=== PATIENT | female | born 1985 | race African-American/Black ===

== ENCOUNTER 2019-01-01 08:18 | Outpatient (CLI) | payer MEDICAID ==
--- NOTE | 2019-01-01 10:27 | ULT ---
BILATERAL RENAL ULTRASOUND COMPLETE: Date: 01/01/19 HISTORY: Chronic kidney disease. FINDINGS: Right kidney measures 9.3 x 5.0 x 4.8 cm. Left kidney measures 9.5 x 5.1 x 4.5 cm. Mild left renal hydronephrosis with some dilatation of the renal pelvis primarily. 1.2 x 1.4 cm left renal cyst. Urinary bladder appears unremarkable. Post-void bladder volume is 10.4 mL. IMPRESSION: Mild dilatation of the left upper renal collecting system. Small left renal cyst. Small post-void uri nary bladder residual. POS: OFF
== END 2019-01-01 08:19 | disposition home or self-care (01) ==
LOC: BICULT 08:18
PROVIDERS: ATTEND Internal Medicine Nephrology
DX: N18.3 Chronic kidney disease, stage 3 (moderate) (principal); N28.1 Cyst of kidney, acquired; N28.89 Other specified disorders of kidney and ureter
CPT/HCPCS: 36415; 76770; 80048; 82570; 84156

== ENCOUNTER 2019-03-11 12:36 | Outpatient (CLI) | payer OTHER ==
--- NOTE | 2019-03-11 13:57 | CT ---
CT Abdomen Pelvis W WO con History: Hydronephrosis Comparison: Ultrasound January 01, 2019 Findings: Lung bases are clear. No pericardial effusion. No renal calculi. Intrauterine device is in place. There is a simple cysts interpolar left kidney measuring 1 cm and fl uid attenuation. Mild dilatation of the left renal pelvis with relatively sharp calyces. The right renal calyces are sharp. No right renal pelvic enlargement. No filling defect within the urinary bladder. No dilated loops of large or small bowel. The appendix is visualized and is normal. No free intraperitoneal gas or fluid. The spleen pancreas liver and gallbladder are all normal. Few erosions of the SI joints bilaterally. No abnormal urothelial enhancing mass. Impression: 1. Simple cyst left kidney. 2. Mild dilatation left renal pelvis without calculi or distal obstructing process. Left ureter is no rmal.
[2019-03-11] MEDS ORDERED: ISOVUE-370 76%-LOCM 1 ML ONE (16:27)
== END 2019-03-11 12:37 | disposition home or self-care (01) ==
LOC: BICCT 12:36
PROVIDERS: ATTEND Urology
DX: N39.41 Urge incontinence (principal); N13.39 Other hydronephrosis; N28.1 Cyst of kidney, acquired; N28.89 Other specified disorders of kidney and ureter
CPT/HCPCS: 36415; 74178; 80048; 83036; Q9966

== ENCOUNTER 2020-08-22 15:24 | Observation (INO) | payer OTHER ==
[2020-08-22 16:04] LABS: #Eosinphils 0.1 thou/uL (0.0-0.7); #Lymphocytes 2.7 thou/uL (1.20-3.40); #Monocytes 0.4 thou/uL (0.11-0.59); #Neutrophils 4.2 thou/uL (1.40-6.50); %Basophils 0.6 % (0.0-1.0); %Eosinophils 1.9 % (0.0-10.0); %Lymphocytes 35.8 % (21.0-51.0); %Monocytes 5.6 % (0.0-10.0); %Neutrophils 56.1 % (42.0-75.0); Hemoglobin 13.7 g/dL (12.0-16.0); Mean Corpuscular HGB CONC 32.3 g/dL (32.0-36.0); Mean Corpuscular Volume 86.8 fL (78.0-98.0); Mean Platelet Volume 8.4 fL (7.4-10.4); Platelet Count 254 thou/uL (130-400); RBC Distribution Width 11.9 % (11.5-14.5); Red Blood Cell (RBC) Count 4.88 mill/uL (4.20-5.40); White Blood Cell (WBC) Count 7.5 thou/uL (4.8-10.8)
--- NOTE | 2020-08-22 16:14 | RAD ---
Chest one view HISTORY: Chest pain. COMPARISON: 12/21/2018. FINDINGS: Cardiac silhouette is magnified by projection. Shallow inspiration accentuates pulmonary ma rkings. Subtle ill-defined streaky parenchymal opacity projects over the left posterior lung base. No evidence of pneumothorax. IMPRESSION : Subtle left basilar streaky infiltrate/opacity. Correlate for left lower lobe pneumonitis
[2020-08-22] MEDS ORDERED: Aspirin Chewable 81 MG TAB ONE (16:16)
[2020-08-22] MEDS ORDERED: Nitroglycerin 2% Ointment 1 INCH/1 GM Packet ONE (16:16)
[2020-08-22 16:22] LABS: BHCG - Serum Negative (NEGATIVE); Pregs Control Background? CLEAR/WHITE (CLR/WHITE); Pregs Control Bar Appear? YES (CONTROL BAR)
[2020-08-22 16:25] LABS: ALT (SGPT) 17 U/L (8-55); AST (SGOT) 19 U/L (5-34); Albumin 3.3 g/dL (3.5-5.0); Alkaline Phosphatase 97 U/L (40-110); Anion Gap 14 mmol/L (10-20); BUN (Urea Nitrogen) 15 mg/dL (7.0-18.7); Bilirubin, Total 0.5 mg/dL (0.2-1.2); Calc. Creatinine Clearance 0 mL/min (70-130); Calcium 8.7 mg/dL (7.8-10.44); Carbon Dioxide 22 mmol/L (22-29); Chloride 109 mmol/L (98-107); Globulin 3.7 g/dL (2.4-3.5); Glucose 82 mg/dL (70-105); Potassium 4.6 mmol/L (3.5-5.1); Sodium 140 mmol/L (136-145)
--- NOTE | 2020-08-22 17:03 | CT ---
CT arteriogram chest and abdomen with IV contrast and 3-D imaging HISTORY: Chest and back pain. COMPARISON: 03/11/2019. FINDINGS: There is good contrast opacification of the aorta with normal branching of the great vessel s at the aortic arch. No filling defects. No aneurysm or leak. Visceral arteries of the abdomen are patent. Lungs are well-inflated. No pleural fluid or pneumothorax. Cysts arise from the cortex of the partially visualized kidneys, 1.5 cm on the left and 0.6 cm on the right. IMPRESSION : No acute abnormalities are demonstrated.
[2020-08-22] MEDS ORDERED: Senokot S 8.6-50 MG TAB PO PRN (17:44)
[2020-08-22] MEDS ORDERED: Acetaminophen 325 MG TAB PO PRN ×2 (17:44→20:30)
[2020-08-22] MEDS ORDERED: Dextrose 5% in Water 1,000 ML IV PRN (17:55)
[2020-08-22] MEDS ORDERED: Dextrose 50% Abboject 50 ML SYRINGE SLOW IVP PRN (17:55)
[2020-08-22] MEDS ORDERED: HumaLOG 300 UNITS/3 ML VIAL SC PRN (17:55)
--- NOTE | 2020-08-22 18:52 | PDOC.HHP ---
Hospitalist HPI - History of Present Illness Chest pain History of Present Illness: 35F presents to the ED today after experiencing sharp chest pain which radiated to her back and right arm. ASA and Nitropaste helped decrease the pain. Patient has a hx of DM II, chronic kidney disease and an WA 3 years ago which resulted in one stent placement. She reports Dr. Reyes placed the stent. She denies pain today caused any SOB, diaphoresis, or nausea. She denies recent fever, chills, cough, abdominal pain. Denies n/v/d. She does endorse not feeling well yesterday; general feelings of malaise. Work-up in the ED was largely unremarkable, CTA chest, EKG, and first troponin negative for acute findings. She will be admitted for ACS concerns. Hospitalist ROS - Review of Systems Eyes: denies: pain, vision change, conjunctivae inflammation, eyelid inflammation, redness, other ENT: denies: ear pain, ear discharge, nose pain, nose discharge, nose congestion, mouth pain, mouth swelling, throat pain, throat swelling, other Respiratory: denies: cough, dry, shortness of breath, hemoptysis, SOB with excertion, pleuritic pain, sputum, wheezing, other Cardiovascular: reports: chest pain Gastrointestinal: denies: nausea, vomiting, abdominal pain Musculoskeletal: reports: back pain Neurological: reports: numbness (transient to right arm) - Medication Medications: Insulin via pump Lorsartan for kidney disease Hospitalist History - Past Medical History Cardiac: reports: CAD Pulmonary: reports: heart attack, hypertension Gastrointestinal: reports: GERD Endocrine: reports: Diabetes - Past Surgical History Past Surgical History: reports: Other (cardiac stent x1) - Family History Family History: reports: no pertinent history - Social History Smoking Status: Never smoker Alcohol: reports: None Living Situation: With Family Activity level: independent ambulation - Exam General Appearance: awake alert Eye: PERRL, anicteric sclera ENT: normocephalic atraumatic, moist mucosa Neck: supple, no lymphadenopathy Heart: RRR, normal peripheral pulses Respiratory: CTAB, normal chest expansion Gastrointestinal: soft, non-distended Skin: normal turgor Neurological: cranial nerve grossly intact Musculoskeletal: normal tone, normal strength Psychiatric: normal affect, A&O x 3 Hospitalist Results - Labs Result Diagrams: 08/22/20 15:40 08/22/20 15:40 Lab results: WBC 7.5 thou/uL (4.8-10.8) 08/22/20 15:40 Hgb 13.7 g/dL (12.0-16.0) 08/22/20 15:40 Hct 42.4 % (36.0-47.0) 08/22/20 15:40 MCV 86.8 fL (78.0-98.0) 08/22/20 15:40 Plt Count 254 thou/uL (130-400) 08/22/20 15:40 Neutrophils % 56.1 % (42.0-75.0) 08/22/20 15:40 Sodium 140 mmol/L (136-145) 08/22/20 15:40 Potassium 4.6 mmol/L (3.5-5.1) 08/22/20 15:40 Chloride 109 mmol/L (98-107) H 08/22/20 15:40 Carbon Dioxide 22 mmol/L (22-29) 08/22/20 15:40 BUN 15 mg/dL (7.0-18.7) 08/22/20 15:40 Creatinine 1.35 mg/dL (0.6-1.1) H 08/22/20 15:40 Glucose 82 mg/dL (70-105) 08/22/20 15:40 Calcium 8.7 mg/dL (7.8-10.44) 08/22/20 15:40 Total Bilirubin 0.5 mg/dL (0.2-1.2) 08/22/20 15:40 AST 19 U/L (5-34) 08/22/20 15:40 ALT 17 U/L (8-55) 08/22/20 15:40 Alkaline Phosphatase 97 U/L (40-110) 08/22/20 15:40 Troponin I Less than 0.010 ng/mL (< 0.028) 08/22/20 15:40 Serum Total Protein 7.0 g/dL (6.0-8.3) 08/22/20 15:40 Albumin 3.3 g/dL (3.5-5.0) L 08/22/20 15:40 Hospitalist H&P A/P - Problem (1) CAD (coronary artery disease) Code(s): I25.10 - ATHSCL HEART DISEASE OF [place] CORONARY ARTERY W/O ANG PCTRS Status: Chronic (2) Diabetes mellitus Code(s): E11.9 - TYPE 2 DIABETES MELLITUS WITHOUT COMPLICATIONS Status: Chronic Qualifiers: Diabetes mellitus complication status: with kidney complications Chronic kidney disease stage: stage 2 (mild) (3) Chest pain at rest Code(s): R07.9 - CHEST PAIN, UNSPECIFIED Status: Acute (4) Chronic kidney disease (CKD) Code(s): N18.9 - CHRONIC KIDNEY DISEASE, UNSPECIFIED Status: Chronic (5) GERD (gastroesophageal reflux disease) Code(s): K21.9 - GASTRO-ESOPHAGEAL REFLUX DISEASE WITHOUT ESOPHAGITIS Status: Chronic - Plan Plan: #Chest Pain Trend troponins Stress test in AM Lipids/TSH in AM Covid-19 screen Cardiac records from last hospitalization in 2018 Tele monitoring # DM II ACHS accuchecks Sliding scale - may use insulin pump # CKD - appears stable/will restart losartan #GERD- protonix 40mg po daily # DVT and PUD prevention started Plan discussed with Dr. Lindsey
[2020-08-22 19:01] LABS: Troponin I Less than 0.010 ng/mL (< 0.028)
[2020-08-22] MEDS ORDERED: Ondansetron PF 4 MG/2 ML Vial IVP PRN (20:30)
[2020-08-22] MEDS ORDERED: Ondansetron ODT 4 MG TAB SL PRN (20:30)
[2020-08-22 20:40] VITALS: BMI 42.6
[2020-08-22] MEDS ORDERED: Nitroglycerin 0.4 MG TAB (25 Tab Bottle) SL PRN (20:41)
[2020-08-22] MEDS ORDERED: Amitriptyline HCl 25 MG TAB PO SCH (20:45)
[2020-08-22] MEDS ORDERED: Nitroglycerin 2% Ointment 1 INCH/1 GM Packet TOP SCH (21:00)
[2020-08-22 22:01] LABS: Troponin I Less than 0.010 ng/mL (< 0.028)
[2020-08-23 03:01] LABS: SARS-CoV-2 PCR by NAA Not Detected (NotDetected)
[2020-08-23 05:08] LABS: #Eosinphils 0.2 thou/uL (0.0-0.7); #Lymphocytes 2.3 thou/uL (1.20-3.40); #Monocytes 0.4 thou/uL (0.11-0.59); %Basophils 0.3 % (0.0-1.0); %Eosinophils 2.4 % (0.0-10.0); %Lymphocytes 33.8 % (21.0-51.0); %Monocytes 5.6 % (0.0-10.0); %Neutrophils 57.9 % (42.0-75.0); Hemoglobin 12.7 g/dL (12.0-16.0); Mean Corpuscular HGB CONC 32.4 g/dL (32.0-36.0); Mean Corpuscular Volume 86.6 fL (78.0-98.0); Mean Platelet Volume 7.8 fL (7.4-10.4); Platelet Count 263 thou/uL (130-400); Red Blood Cell (RBC) Count 4.52 mill/uL (4.20-5.40); White Blood Cell (WBC) Count 6.9 thou/uL (4.8-10.8)
[2020-08-23 05:33] LABS: ALT (SGPT) 13 U/L (8-55); AST (SGOT) 14 U/L (5-34); Albumin 2.9 g/dL (3.5-5.0); Alkaline Phosphatase 84 U/L (40-110); Anion Gap 10 mmol/L (10-20); BUN (Urea Nitrogen) 15 mg/dL (7.0-18.7); Bilirubin, Total 0.5 mg/dL (0.2-1.2); Calc. Creatinine Clearance 119 mL/min (70-130); Calcium 8.1 mg/dL (7.8-10.44); Carbon Dioxide 22 mmol/L (22-29); Chloride 109 mmol/L (98-107); Glucose 115 mg/dL (70-105); Potassium 3.9 mmol/L (3.5-5.1); Protein, Total 5.9 g/dL (6.0-8.3); Sodium 137 mmol/L (136-145)
[2020-08-23] MEDS ORDERED: INSULIN ASPART SC PRN (12:40)
--- NOTE | 2020-08-23 15:29 | PDOC.HOSPP ---
- Subjective Encounter Date: 08/23/20 Encounter Time: 15:28 Subjective: pt up in bed no complains - Objective Vital Signs & Weight: Vital Signs (12 hours) Temp Pulse Resp BP Pulse Ox 08/23/20 12:30 97.2 F L 88 17 140/98 H 98 08/23/20 08:00 97.4 F L 83 18 114/77 99 08/23/20 04:00 98.5 F 87 18 117/68 96 Weight Weight 264 lb 4.8 oz I&O: 08/22/20 08/23/20 08/24/20 06:59 06:59 06:59 Intake Total 480 Balance 480 Result Diagrams: 08/23/20 04:29 08/23/20 04:29 Additional Labs: Accuchecks 08/23/20 08/22/20 05:53 20:21 POC Glucose 116 H 77 Hospitalist ROS - Review of Systems Cardiovascular: denies: chest pain, palpitations, orthopnea, paroxysmal noc. dyspnea, edema, light headedness, other Gastrointestinal: denies: nausea, vomiting, abdominal pain, diarrhea, constipation, melena, hematochezia, other Genitourinary: denies: dysuria, frequency, incontinence, hematuria, retention, other - Medication Medications: Active Medications Generic Name Dose Route Start Last Admin Trade Name Freq PRN Reason Stop Dose Admin Pantoprazole Sodium 40 mg 08/23/20 09:00 08/23/20 13:39 Pantoprazole 40 Mg Tab PO 40 mg DAILY MADISYN Administration - Exam Heart: negative: RRR, no murmur, no gallops, no rubs, normal peripheral pulses, irregular, diminshed peripheral pulses, murmur present, II/IV, III/IV Respiratory: negative: CTAB, no wheezes, no rales, no ronchi, normal chest expansion, no tachypnea, normal percussion, rales, rhonchi, tachypneic, wheezes Gastrointestinal: negative: soft, non-tender, non-distended, normal bowel sounds, no palpable masses, no hepatomegaly, no splenomegaly, no bruit, no guarding, no rigidity, tender to palpation, distended, diminished bowl sounds, voluntary guarding Hosp A/P (1) Chest pain Code(s): R07.9 - CHEST PAIN, UNSPECIFIED Status: Acute (2) CAD (coronary artery disease) Code(s): I25.10 - ATHSCL HEART DISEASE OF [place] CORONARY ARTERY W/O ANG PCTRS Status: Chronic (3) Diabetes mellitus Code(s): E11.9 - TYPE 2 DIABETES MELLITUS WITHOUT COMPLICATIONS Status: Chronic Qualifiers: Diabetes mellitus complication status: with kidney complications Chronic kidney disease stage: stage 2 (mild) (4) GERD (gastroesophageal reflux disease) Code(s): K21.9 - GASTRO-ESOPHAGEAL REFLUX DISEASE WITHOUT ESOPHAGITIS Status: Chronic - Plan pt had her first part of stress test. she will undergo second part in am. will continue home meds.
[2020-08-23] MEDS: Ivabradine 5 MG TAB PO SCH (20:44)
[2020-08-23] MEDS: Magnesium Oxide 250 MG TAB PO SCH (20:45)
[2020-08-23] MEDS: Carvedilol 6.25 MG TAB PO SCH (20:45)
[2020-08-23] MEDS ORDERED: Amitriptyline HCl 25 MG TAB PO SCH (21:00)
[2020-08-24] MEDS ORDERED: Losartan 25 MG TAB PO SCH (09:00)
[2020-08-24] MEDS ORDERED: Ubidecarenone 50 MG CAP PO SCH (09:00)
[2020-08-24] MEDS ORDERED: Aspirin Chewable 81 MG TAB PO SCH (09:00)
[2020-08-24] MEDS ORDERED: SEMAGLUTIDE SC SCH (09:00)
--- NOTE | 2020-08-24 09:41 | NM ---
Radionucleotide stress and rest myocardial perfusion scan with CT attenuation correction and SPECT im aging Left ventricular wall motion evaluation and ejection fraction HISTORY: Chest pain. FINDINGS: Adenosine protocol. There is heterogeneous uptake of radiotracer throughout the left ventri cular myocardium. No focal perfusion defect or reversibility. QGS analysis of gated SPECT images shows global hypokinesis, most pronounced at the septum and inferi or wall. Ejection fraction calculated at 37%. IMPRESSION : No evidence of ischemia. Depressed LVEF 37%.
[2020-08-24] MEDS: Carvedilol 6.25 MG TAB PO SCH (09:43)
[2020-08-24] MEDS: Magnesium Oxide 250 MG TAB PO SCH (09:49)
[2020-08-24] MEDS: Ivabradine 5 MG TAB PO SCH (09:49)
[2020-08-24] MEDS ORDERED: Iopamidol 370 76% 100 ML VIAL ONE (12:12)
--- NOTE | 2020-08-24 13:08 | CT ---
CT ANGIOGRAM THORAX WITH IV CONTRAST AND 3-D RECONSTRUCTIONS CLINICAL INDICATION: Chest pain. COMPARISON: 08/22/2020 FINDINGS: Pulmonary arteries: No filling defects are seen in the pulmonary arteries to suggest a pulmonary embo endy. Aorta: The aorta is normal in caliber without evidence of an aortic dissection. Lungs: Atelectasis is present at each lung base. No pulmonary nodule, mass, or pleural effusion is se en. Mediastinum: There is no evidence of lymphadenopathy. Thyroid gland: Grossly within normal limits where visualized. Osseous structures: No suspicious lytic or sclerotic osseous lesion. Chest wall: No abnormality visualized. Upper abdomen: Moderate amount retained fecal material seen in the splenic flexure. IMPRESSION: 1. No CT evidence of a pulmonary embolus. 2. Thoracic aorta is normal in caliber. 3. Moderate amount retained fecal material in the splenic flexure.
--- NOTE | 2020-08-24 14:20 | PDOC.DS.DS ---
Provider - Provider Date of Admission: 08/22/20 17:25 Date of Discharge: 08/24/20 Admitting Provider: Seferino Lindsey MD Primary Care Physician: [facility] Course - Hospital Course Hospital Course: Discharge diagnosis: 1. Chest pain 2. Chest pain most likely secondary to musculoskeletal etiology 3. Hypoalbuminemia 4. COVID-19 test negative Hospital course: Patient is a pleasant 35-year-old lady who was admitted to the hospital on August 22, 2020 for chest pain. She had a nuclear stress test, which did not show any evidence of ischemia. Left ventricular ejection fraction as reported from the stress test was 37%. She has been advised to follow-up with her livestock farmworker for further investigations. D-dimer was elevated. CT angiogram of the chest did not show any evidence of pulmonary embolism. Thoracic aorta was normal in caliber. She had moderate amount of retained fecal material in the splenic flexure. Her chest pain resolved after admission. She is being discharged home in a stable condition. Many thanks for allowing me to participate in your patient's care. Please feel free to contact me with any questions or concerns. Discharge destination: Home Total amount of time spent coordinating this discharge: 25 minutes Resuscitation Status: 08/22/20 18:40 Resuscitation Status Routine Co-Sign Provider: Resuscitation Status: FULL: Full Resuscitation Discussed with: patient Additional comments: Mother is surrogate decision maker - Labs Lab Results: 08/23/20 04:29 08/23/20 04:29 Abnormal Lab Results - Last 48 hrs 08/22/20 15:40: Chloride 109 H, Creatinine 1.35 H, Albumin 3.3 L, Globulin 3.7 H, Albumin/Globulin Ratio 0.9 L 08/23/20 04:29: Chloride 109 H, Creatinine 1.22 H, Serum Total Protein 5.9 L, Albumin 2.9 L, Albumin/Globulin Ratio 1.0 L 08/24/20 10:12: D-Dimer 0.61 H - Physical Exam Vitals: Vital Signs (12 hours) Temp Pulse Resp BP Pulse Ox 08/24/20 12:00 98.6 F 88 19 114/82 95 08/24/20 07:49 98.0 F 78 17 167/88 H 97 08/24/20 04:00 98.3 F 60 16 108/71 95 Weight Weight 263 lb 1.6 oz Physical Exam: The patient was seen and examined on the day of discharge. Patient denies chest pain or shortness of breath. Vital signs are stable. S1 and S2 are heard. Lungs are clear to auscultation bilaterally. Plan - Discharge Medications Home Medications: Medication Instructions Recorded Confirmed Type Amitriptyline HCl 50 mg PO HS 08/22/20 08/22/20 History Aspirin Chewable [Aspirin Chewable 81 mg PO DAILY 08/22/20 08/22/20 History Tablet] Carvedilol 12.5 mg PO BID 08/22/20 08/22/20 History Insulin Aspart [Novolog] 1 - 10 units SC ACHS PRN 08/22/20 08/22/20 History Ivabradine [Corlanor] 5 mg PO BID 08/22/20 08/22/20 History Lansoprazole 40 mg PO BID 08/22/20 08/22/20 History Losartan [Cozaar] 12.5 mg PO DAILY 08/22/20 08/22/20 History Magnesium Oxide [Magnesium] 500 mg PO BID 08/22/20 08/22/20 History Semaglutide [Ozempic] 1 mg SQ ASDIR 08/22/20 08/22/20 History Ubidecarenone [CoQ-10] 200 mg PO DAILY 08/22/20 08/22/20 History Allergies: sulfamethoxazole [From Bactrim] Allergy (Verified 08/22/20 20:43) trimethoprim [From Bactrim] Allergy (Verified 08/22/20 20:43) - Follow up Plan Referrals: [facility] [Primary Care Provider] - 3 Days (Please call the clinic and schedule a follow up appointment) Disposition: HOME Quality - Care Measures CORE MEASURES:: N/A
[2020-08-24 15:24] VITALS: TEMP 97.9
[2020-08-24 15:26] VITALS: BP 140/104
== END 2020-08-24 17:15 | disposition home or self-care (01) ==
LOC: ERS 15:24 → 2NO 17:25
PROVIDERS: ADMIT Internal Medicine; ATTEND Internal Medicine
DX: R07.2 Precordial pain (principal); E88.09 Other disorders of plasma-protein metabolism, not elsewhere classified; I12.0 Hypertensive chronic kidney disease with stage 5 chronic kidney disease or end stage renal disease; E11.22 Type 2 diabetes mellitus with diabetic chronic kidney disease; N18.2 Chronic kidney disease, stage 2 (mild); I25.2 Old myocardial infarction; I25.10 Atherosclerotic heart disease of native coronary artery without angina pectoris; K21.9 Gastro-esophageal reflux disease without esophagitis; Z79.4 Long term (current) use of insulin; Z79.82 Long term (current) use of aspirin; Z79.899 Other long term (current) drug therapy; Z88.1 Allergy status to other antibiotic agents; Z88.2 Allergy status to sulfonamides; Z95.5 Presence of coronary angioplasty implant and graft; Z96.41 Presence of insulin pump (external) (internal); Z20.822 Contact with and (suspected) exposure to COVID-19
CPT/HCPCS: 36415; 36416; 71045; 71275; 74174; 78452; 80053; 84484; 84703; 85025; 85379; 87635; 93005; 93017; A9500; G0378; J0153; Q9967; U0003; U0005

== ENCOUNTER 2020-09-25 11:25 | Outpatient (CLI) | payer OTHER | END 2020-09-25 11:26 | disposition home or self-care (01) | LOC: DTY/OP 11:25 | PROVIDERS: ATTEND Internal Medicine | DX: I50.9 Heart failure, unspecified (principal); E11.65 Type 2 diabetes mellitus with hyperglycemia; I25.10 Atherosclerotic heart disease of native coronary artery without angina pectoris; Z96.41 Presence of insulin pump (external) (internal); Z79.899 Other long term (current) drug therapy | CPT/HCPCS: 97802 ==

== ENCOUNTER 2022-01-06 11:17 | Emergency (ER) | payer MEDICAID, OTHER ==
[2022-01-06 12:07] LABS: #Eosinphils 0.2 thou/uL (0.0-0.7); #Lymphocytes 1.8 thou/uL (1.20-3.40); #Monocytes 0.3 thou/uL (0.11-0.59); #Neutrophils 3.7 thou/uL (1.40-6.50); %Basophils 0.7 % (0.0-1.0); %Eosinophils 3.1 % (0.0-10.0); %Monocytes 5.3 % (0.0-10.0); %Neutrophils 60.9 % (42.0-75.0); Hemoglobin 12.7 g/dL (12.0-16.0); Mean Corpuscular HGB CONC 32.7 g/dL (32.0-36.0); Mean Corpuscular Hemoglobin 29.8 pg (27.0-31.0); Mean Platelet Volume 7.7 fL (7.4-10.4); Platelet Count 239 thou/uL (130-400); RBC Distribution Width 11.5 % (11.5-14.5); Red Blood Cell (RBC) Count 4.25 mill/uL (4.20-5.40); White Blood Cell (WBC) Count 6.1 thou/uL (4.8-10.8)
[2022-01-06 12:39] LABS: ALT (SGPT) 15 U/L (8-55); AST (SGOT) 13 U/L (5-34); Alkaline Phosphatase 93 U/L (40-110); Anion Gap 11 mmol/L (10-20); BUN (Urea Nitrogen) 17 mg/dL (7.0-18.7); Bilirubin, Total 0.5 mg/dL (0.2-1.2); Calc. Creatinine Clearance 0 mL/min (70-130); Calcium 8.8 mg/dL (7.8-10.44); Carbon Dioxide 23 mmol/L (22-29); Chloride 109 mmol/L (98-107); Globulin 3.3 g/dL (2.4-3.5); Glucose 159 mg/dL (70-105); Magnesium 1.5 mg/dL (1.6-2.6); Potassium 4.8 mmol/L (3.5-5.1); Protein, Total 6.3 g/dL (6.0-8.3); Sodium 138 mmol/L (136-145)
[2022-01-06] MEDS ORDERED: Magnesium 2 GM/50 ML BAG (IN WATER) ONE (12:48)
[2022-01-06 13:47] LABS: Bacteria/HPF 1+ HPF (None Seen); Bilirubin Negative (Negative); Blood, Urine Negative (Negative); Clarity Turbid (Clear); Glucose, Urine (Dipstick) Normal (Negative); Ketone, Urine Negative (Negative); Leukocyte 500 Leu/uL (Negative); Nitrite Negative (Negative); Protein, Urine (Dipstick) 300 mg/dL (Neg-Trace); RBC/HPF 0-3 HPF (0-3); Specific Gravity, Urine 1.014 (1.002-1.036); Urobilinogen Normal mg/dL (Less than 2); WBC/HPF Greater than 50 HPF (0-3); pH, Urine 7.5 (5.0-9.0)
== END 2022-01-06 14:51 | disposition home or self-care (01) ==
LOC: ERS 11:17
DX: R00.1 Bradycardia, unspecified (principal); E11.22 Type 2 diabetes mellitus with diabetic chronic kidney disease; N18.30 Chronic kidney disease, stage 3 unspecified; K21.9 Gastro-esophageal reflux disease without esophagitis; I25.2 Old myocardial infarction; Z79.82 Long term (current) use of aspirin; Z79.84 Long term (current) use of oral hypoglycemic drugs; Z79.899 Other long term (current) drug therapy
CPT/HCPCS: 36415; 71045; 80053; 81003; 81015; 83735; 84443; 84484; 85025; 93005; 94760; 96361; 96365; 96366; J3475